=== PATIENT | male | born 1935 | race Hispanic/Latino ===

== ENCOUNTER 2021-03-29 11:13 | Emergency (ER) | payer MEDICARE ==
[~2021-03-29] VITALS: Ht 185.4 cm; Wt 113.4 kg
[~2021-03-29 11:13] MED LIST: ASPI-556 PO; ATOR20TA65 PO; CLOP75TA14 PO; DOXY100T2 PO; LISI2.5T13 PO; METF-444 PO; SULF1TAB42 PO; TYL3 PO
[2021-03-29 11:24] VITALS: BP 120/93
[2021-03-29] MEDS ORDERED: ACETAMINOPHEN 500 MG TABLET PO SCH (11:30)
[2021-03-29] MEDS ORDERED: OCTYL 2-CYANOACRYLATE 1 EACH TP ONE (12:51)
[2021-03-29] MEDS ORDERED: LIDOCAINE HCL 1% 20 ML VIAL ONE (12:51)
[2021-03-29] MEDS ORDERED: CEPH500B PO (14:03)
[2021-03-29 14:18] VITALS: BP 120/69
== END 2021-03-29 14:00 | disposition home or self-care (01) ==
LOC: EDH 11:13
DX: S51.812A Laceration without foreign body of left forearm, initial encounter (principal); S00.03XA Contusion of scalp, initial encounter; S80.212A Abrasion, left knee, initial encounter; I10 Essential (primary) hypertension; E11.9 Type 2 diabetes mellitus without complications; Z79.01 Long term (current) use of anticoagulants; Z79.82 Long term (current) use of aspirin; Z79.84 Long term (current) use of oral hypoglycemic drugs; Z79.899 Other long term (current) drug therapy; Z96.659 Presence of unspecified artificial knee joint; W01.0XXA Fall on same level from slipping, tripping and stumbling without subsequent striking against object, initial encounter; Y93.89 Activity, other specified; Y92.89 Other specified places as the place of occurrence of the external cause; Y99.8 Other external cause status
CPT/HCPCS: 70450; 72125; 73110

== ENCOUNTER 2022-01-17 00:09 | Emergency (ER) | payer MEDICARE ==
[~2022-01-17] VITALS: Ht 175.3 cm; Wt 113.4 kg
[~2022-01-17 00:09] MED LIST changes: +CEPH500B PO
[2022-01-17 01:52] VITALS: BP 172/88
[2022-01-17 02:00] LABS: BASOPHILS % (AUTO) 0.5 % (0.0-5.0); HEMATOCRIT 37.7 % (42-54); LYMPHOCYTES % (AUTO) 12.6 % (21.0-51.0); MEAN CORPUSCULAR HEMOGLOBIN 29.7 pg (27.0-33.0); MEAN CORPUSCULAR HGB CONC 32.9 g/dL (32.0-36.0); MEAN CORPUSCULAR VOLUME 90.2 fL (79-99); MONOCYTES % (AUTO) 6.2 % (3.0-13.0); NEUTROPHILS % (AUTO) 80.5 % (40.0-77.0); PLATELET COUNT (AUTO) 241 K/uL (130-400); RED BLOOD CELL COUNT(AUTO) 4.18 MIL/uL (4.50-6.20); RED CELL DISTRIBUTION WIDTH 14.6 % (11.0-15.5); WHITE BLOOD COUNT (AUTO) 8.5 K/uL (4.8-10.8)
[2022-01-17 02:16] LABS: CREATININE 1.3 mg/dL (0.5-1.5)
[2022-01-17 02:20] LABS: ALBUMIN 3.2 g/dL (3.5-5.0); TOTAL PROTEIN, SERUM 7.9 g/dL (6.0-8.3)
== END 2022-01-17 03:03 | disposition home or self-care (01) ==
LOC: EDH 00:09
DX: S00.83XA Contusion of other part of head, initial encounter (principal); S50.311A Abrasion of right elbow, initial encounter; R11.2 Nausea with vomiting, unspecified; E11.9 Type 2 diabetes mellitus without complications; I10 Essential (primary) hypertension; Z79.84 Long term (current) use of oral hypoglycemic drugs; W01.0XXA Fall on same level from slipping, tripping and stumbling without subsequent striking against object, initial encounter; X58.XXXA Exposure to other specified factors, initial encounter; Y93.89 Activity, other specified; Y92.89 Other specified places as the place of occurrence of the external cause; Y99.8 Other external cause status
CPT/HCPCS: 36415; 80053; 85025